=== PATIENT | male | born 1940 | race Caucasian/White ===

== ENCOUNTER 2020-12-05 21:29 | Observation (INO) | payer MEDICARE ==
[~2020-12-05] VITALS: Ht 170.2 cm; Wt 85.1 kg
[2020-12-05] MEDS ORDERED: ASPI-963 PO (21:34)
--- NOTE | 2020-12-05 21:39 | NUR ---
pt bib care flight from [place] where he walked into the ed this am with a swollen and painful right knee, pt reports this started 2 days ago. Had a knee sx years ago when he was younger but not recently. other medical history is stent placement due to coronary artery dx and hlp. pt had a slight fever on arrival to their hospital, synovial fluid had increased WBCs. No abx provided or tylenol at previous hospital. pt given phenergan, 100mcg fentanyl, and zofran Patient is resting comfortably in bed. Bed in lowest, rails engaged, call light on lap. Vital Signs within normal limits. WCTM. pat[facility]p at [facility] for eval and poc
[2020-12-05] MEDS ORDERED: KETOROLAC 30 MG/1 ML IVPush STA (21:45)
[2020-12-05] MEDS ORDERED: KETOROLAC 30 MG/1 ML ONE (21:48)
[2020-12-05] MEDS ORDERED: KETOROLAC 30 MG/1 ML IVPush ONE (22:00)
--- NOTE | 2020-12-05 22:05 | NUR ---
PT MEDICATED PER AUG FOR PAIN AND SENT TO RADIOLOGY FOR XRAY OF RIGHT KNEE. NO ACUTE CHANGES IN CONDITION
[2020-12-05] MEDS ORDERED: LIDOCAINE-MPF 1%, 5ML ONE (22:30)
--- NOTE | 2020-12-06 00:44 | NUR ---
Patient is resting comfortably in bed. Bed in lowest, rails engaged, call light on lap. Vital Signs within normal limits. NAD, denies any needs at this time. eyes closed, even and unlabored respirations noted. WCTM. pt to be admitted
[2020-12-06 01:19] VITALS: BP 153/81
[2020-12-06] MEDS ORDERED: GABAPENTIN 300 MG CAPSULE PO PRN (01:30)
[2020-12-06] MEDS ORDERED: BACLOFEN 10 MG TABLET PO PRN (01:30)
[2020-12-06] MEDS ORDERED: ACETAMINOPHEN 325 MG TABLET PO PRN (01:30)
[2020-12-06] MEDS ORDERED: DOCUSATE 100 MG CAPSULE PO PRN (01:30)
[2020-12-06] MEDS ORDERED: GUAIFENESIN/DM 200-20MG, 10ML UDC PO PRN (01:30)
[2020-12-06] MEDS ORDERED: TEMAZEPAM 15 MG CAPSULE PO PRN (01:30)
[2020-12-06] MEDS ORDERED: morphine SULFATE 10 MG/ML, 1ML IVPush PRN (01:30)
[2020-12-06] MEDS ORDERED: ONDANSETRON 2MG/ML, 2ML IVPush PRN (01:30)
[2020-12-06] MEDS ORDERED: hydrALAzine 20 MG/ML, 1ML IVPush PRN (01:30)
[2020-12-06] MEDS: SODIUM CHLORIDE 0.9% 1,000 ML IV SCH ×3 (01:55→22:07)
[2020-12-06] MEDS: OXYcodone IR 5MG TABLET PO PRN ×5 (01:56→21:00)
[2020-12-06 02:15] LABS: BASOPHILS % (AUTO) 1 % (0-1); EOSINOPHILS % (AUTO) 0 % (1-7); LYMPHOCYTES % (AUTO) 24 % (22-44); MEAN CORPUSCULAR HEMOGLOBIN 29.4 pg (27.5-34.5); MEAN CORPUSCULAR HGB CONC 33.5 g/dL (33.2-36.2); MEAN PLATELET VOLUME 8.9 fL (7.4-10.4); MONOCYTES % (AUTO) 15 % (2-9); NEUTROPHILS % (AUTO) 60 % (42-75); PLATELET COUNT 189 x10^3/uL (130-400); RED CELL DISTRIBUTION WIDTH 14.7 % (9.4-14.8)
[2020-12-06 02:16] VITALS: BP 153/81
[2020-12-06 02:25] LABS: ALBUMIN 3.3 g/dL (3.4-5.0); ANION GAP 5 mmol/L (5-15); CALCIUM 8.5 mg/dL (8.5-10.1); CHLORIDE 109 mmol/L (98-107); INTERNATIONAL NORMALIZED RATIO 1.16 (0.93-1.1); PROTHROMBIN TIME 12.4 Seconds (9.6-11.5)
[2020-12-06 06:40] VITALS: BP 146/80
[2020-12-06 12:10] VITALS: BP 122/70
[2020-12-06 18:20] VITALS: BP 112/65
[2020-12-06 21:02] VITALS: BP 101/66
[2020-12-07 00:19] VITALS: BP 98/58
[2020-12-07 03:21] VITALS: BP 132/75
[2020-12-07] MEDS: OXYcodone IR 5MG TABLET PO PRN ×2 (04:25→15:41)
[2020-12-07 06:47] VITALS: BP 124/68
[2020-12-07 07:00] LABS: BASOPHILS % (AUTO) 1 % (0-1); EOSINOPHILS % (AUTO) 1 % (1-7); LYMPHOCYTES % (AUTO) 22 % (22-44); MEAN CORPUSCULAR HEMOGLOBIN 29.6 pg (27.5-34.5); MEAN CORPUSCULAR HGB CONC 33.8 g/dL (33.2-36.2); MONOCYTES % (AUTO) 10 % (2-9); NEUTROPHILS % (AUTO) 67 % (42-75); PLATELET COUNT 166 x10^3/uL (130-400); RED BLOOD COUNT 4.31 x10^6/uL (4.38-5.82); RED CELL DISTRIBUTION WIDTH 14.1 % (9.4-14.8)
[2020-12-07 07:11] LABS: ANION GAP 8 mmol/L (5-15); CALCIUM 8.1 mg/dL (8.5-10.1); CHLORIDE 108 mmol/L (98-107); CREATININE 0.98 mg/dL (0.7-1.3)
[2020-12-07] MEDS ORDERED: KETOROLAC 30 MG/1 ML IVPush SCH (08:30)
[2020-12-07] MEDS ORDERED: OXYC5CAP2 PO (14:15)
[2020-12-07] MEDS ORDERED: DICL100G25 TL (14:15)
[2020-12-07] MEDS ORDERED: SENN8.6T12 PO (14:15)
[2020-12-07] MEDS ORDERED: POLY17PO5 PO (14:15)
[2020-12-07] MEDS ORDERED: PRED10TA PO (14:15)
[2020-12-07] MEDS ORDERED: CELE200C PO (14:15)
[2020-12-07 14:25] VITALS: BP 146/72
== END 2020-12-07 16:16 | disposition home or self-care (01) ==
LOC: ED 21:50 → INTOOBSV 12-06 01:11 → EDIP 12-06 01:11 → 4NW 12-06 01:15 → 3N 12-06 20:34
PROVIDERS: ADMIT Internal Medicine; ATTEND Internal Medicine
DX: M17.11 Unilateral primary osteoarthritis, right knee (principal); G89.29 Other chronic pain; M25.461 Effusion, right knee; I25.10 Atherosclerotic heart disease of native coronary artery without angina pectoris; M06.4 Inflammatory polyarthropathy; N20.0 Calculus of kidney; Z95.5 Presence of coronary angioplasty implant and graft; Z87.442 Personal history of urinary calculi; Z79.899 Other long term (current) drug therapy
CPT/HCPCS: 36415; 73564; 80048; 82040; 85025; 85610; 85810; 87070; 87205; 89050; 89060; 96361; 96374; 96375; 96376; 97163; 99284; G0378; J1885; J2270; J7030